=== PATIENT | female | born 1960 | race Caucasian/White ===

== ENCOUNTER 2024-12-08 07:10 | Day surgery (SDC) | payer MEDICARE, BC ==
[2024-12-08] MEDS ORDERED: DEXAMETHASONE SOD PHOSPHATE 4 MG/ML 1 ML VIAL IV ONE (07:29)
[2024-12-08] MEDS ORDERED: HYDROmorphone 0.5 MG/0.5 ML SYRINGE IVP PRN ×2 (07:29→10:45)
[2024-12-08 08:07] LABS: Glucose,Whole Blood 79 mg/dL (70-110)
[2024-12-08] MEDS: IV FLUID CONTINUATION 1,000 ML IV ONE (08:09)
[2024-12-08] MEDS: ONDANSETRON 4 MG/2 ML VIAL IVP ONE (08:15)
[2024-12-08] MEDS: LACTATED RINGERS 1,000 ML IV SCH (08:15)
[2024-12-08] MEDS: DEXTROSE 50% SYRINGE 50 ML IVP STA (08:16)
[2024-12-08 08:17] LABS: Basophils # (A) 0.1 k/uL (0-0.2); Basophils % (A) 1 %; Eosinophils # (A) 0.2 k/uL (0-0.7); Eosinophils % (A) 2 %; HCT 41.9 % (34.0-46.0); HGB 13.8 gm/dL (11.4-16.0); Lymphocytes # (A) 2.2 k/uL (1.0-4.8); Lymphocytes % (A) 26 %; MCHC 32.9 g/dL (31.0-37.0); MCV 91.2 fL (80.0-100.0); Mean Platelet Volume 6.9; Monocytes # (A) 0.6 k/uL (0-1.0); Monocytes % (A) 7 %; Neutrophils # (A) 5.4 k/uL (1.3-7.7); Neutrophils % (A) 63 %; Platelet Count 240 k/uL (150-450); RBC 4.59 m/uL (3.80-5.40); RDW 13.3 % (11.5-15.5); WBC 8.6 k/uL (3.8-10.6)
[2024-12-08 08:29] LABS: Glucose,Whole Blood 170 mg/dL (70-110)
[2024-12-08] MEDS ORDERED: SUCCINYLCHOLINE CHLORIDE 200 MG/10 ML VIAL IV ONE (08:29)
[2024-12-08] MEDS ORDERED: NEOSTIGMINE 1 MG/ML 10 ML VIAL ONE (08:29)
[2024-12-08] MEDS ORDERED: ROCURONIUM 10 MG/ML (5 ML VIAL) IV ONE (08:29)
[2024-12-08] MEDS ORDERED: KETAMINE HCL IN 0.9 % NACL 50 MG/5 ML SYRINGE ONE (08:29)
[2024-12-08] MEDS ORDERED: GLYCOPYRROLATE 0.2 MG/ML 2 ML VIAL ONE (08:29)
[2024-12-08] MEDS ORDERED: MIDAZOLAM 2 MG/2 ML VIAL ONE (08:29)
[2024-12-08] MEDS ORDERED: fentaNYL (PF) 50 MCG/ML 2 ML AMP ONE (08:29)
[2024-12-08] MEDS ORDERED: PROPOFOL 10 MG/ML 20 ML VIAL IV ONE (08:29)
[2024-12-08] MEDS ORDERED: PHENYLEPHRINE 10 MG/ML VIAL ONE (08:29)
[2024-12-08] MEDS: ceFAZolin 1,000 MG in SODIUM CHLORIDE 0.9% IRRIGATIO 1,000 ML IRRIGATION PRN (08:51)
[2024-12-08] MEDS: LIDOCAINE 1%-EPI 1:100,000 20 ML VIAL SQ ONE (08:58)
[2024-12-08] MEDS: THROMBIN (BOVINE) 5,000 UNIT VIAL TOPICAL ONE (08:59)
--- NOTE | 2024-12-08 09:43 | XR ---
EXAMINATION TYPE: XR cervical spine 1V DATE OF EXAM: 12/08/2024 9:31 AM INDICATION: Patient age:Female; 64 years old; Reason for study: NEEDLE PLACEMENT; [facility], COMPARISON: None TECHNIQUE: The cervical spine was imaged in single lateral projection. FINDINGS: No evidence for cervical spine fracture within the limitations of a single lateral view. Postsurgical changes from anterior fusion with fixation plate spanning C6. There is a screw involving the anterio r aspect of the C5 vertebral body. No visualized screw involving the C6 vertebral body. There is fusi on of the C5-C6 vertebral bodies. Anterior approach needle position is identified with distal tip wit hin the anterior midportion of the C6-C7 disc space. Prevertebral soft tissue swelling demonstrated. Endotracheal tube partially visualized. Temperature probe identified within the region of the nasopha rynx. IMPRESSION: Anterior approach needle position is identified with distal tip within the anterior midportion of the C6-C7 disc space. [facility], , 12/08/2024 9:40 AM
[2024-12-08] MEDS: LACTATED RINGERS 1,000 ML IV ONE (09:55)
--- NOTE | 2024-12-08 10:13 | XR ---
EXAMINATION TYPE: XR cervical spine 1V DATE OF EXAM: 12/08/2024 10:07 AM INDICATION: Patient age:Female; 64 years old; Reason for study: HARDWARE PLACEMENT; [facility], COMPARISON: Cervical spine radiograph 12/08/2024 TECHNIQUE: The cervical spine was imaged in single lateral projection. FINDINGS: No evidence for cervical spine fracture within the limitations of a single lateral view. Postsurgical changes of anterior cervical fusion with fixation plate spanning C5-C6 with screws at the C5 and C6 levels with disc spacer. Hardware appears intact with appropriate alignment. The C7 vertebral body is not well-visualized. Expected prevertebral soft tissue swelling. Mild multilevel degenerative disc d isease. Endotracheal tube partially visualized. Temperature probe identified within the region of the nasopharynx. IMPRESSION: Postsurgical changes from ACDF C5-C6. Hardware appears intact with appropriate alignment. [facility], , 12/08/2024 10:10 AM
[2024-12-08 10:25] VITALS: TEMP 97
--- NOTE | 2024-12-08 10:30 | P.OP ---
Date of Procedure: 12/08/24 Preoperative Diagnosis: Cervical stenosis C6-7, hernia nucleus pulposus C6-7, upper extremity radiculopathy, history of prior anterior cervical decompression and fusion C5-6 with retained hardware Postoperative Diagnosis: Same Anesthesia: GETA Pathology: none sent Condition: stable Disposition: PACU Description of Procedure: BRIEF OPERATIVE NOTE Preoperative Diagnosis:Cervical stenosis C6-7, hernia nucleus pulposus C6-7, upper extremity radiculopathy, history of prior anterior cervical decompression and fusion C5-6 with retained hardware Postoperative Diagnosis: Same with findings of solid fusion at C5-6 Procedure: Removal anterior cervical plate at C5-6, Exploration of fusion C5-6 with findings of solid fusion, anterior cervical decompression with discectomy and fusion C6-7 Placement of interbody graft Application of anterior cervical plate C6-7 Surgeon: Dr. Salmon Site Reliability Engineer: Moises MARTE who is present throughout the entire the case persistence during positioning, dissection, exposure, visualization, and all crucial elements of the case as well as closure. Anesthesia: General anesthesia Estimated blood loss: Approximately 30 cc Complications: None apparent Components implanted: We removed a [place] [employer] anterior cervical plate with screws and inserted a K2M [employer] [place] anterior cervical plate with screws with Vikos interbody allograft bone graft Disposition: To recovery room in good stable condition. OPERATIVE INDICATIONS The patient has had worsening issues in their neck and upper extremities over the past year. In the past the patient had undergone anterior cervical decompression with fusion at C5-6 for upper extremity colopathy and stenosis with neck pain and had an excellent result over the past 13 years. However over the past year the patient's been having increasing symptoms in her neck and upper extremities with numbness tingling and radiculopathy. She was found to have adjacent level degeneration with disc herniation and stenosis at C6-7 and evidence of solid fusion at C5-6. The patient has been through conservative treatment. She is not having any prolonged benefit despite aggressive conservative treatment and was interested in surgical intervention. We discussed various treatment options including surgery, and the patient wishes to proceed with surgery We discussed the risk, patient's alternatives and benefits of surgery including but not limited to, risk of bleeding risk of infection, risk of need for further surgery, risk of decreased, loss of motion, muscle function, malunion nonunion, hardware failure, nerve damage, paralysis, heart attack, and . OPERATIVE SUMMARY After discussing all the risks, patient alternatives and benefits at length, the patient elected to proceed with surgical intervention, signed informed consent, and presented for their procedure. The patient was seen and examined in the preoperative holding area and the surgical site was marked. The patient was given antibiotics and brought to the operating room. The patient was positioned on the operating room table in a supine position being careful to pad any bony prominences and pressure points. The patient was sedated and intubated by anesthesia in standard fashion. Once the airway and C- spine were stabilized the patient's arms were padded and tucked at her side, with her shoulders gently taped. The head was placed in a donut pad with the neck in good neutral alignment and position. We were careful to maintain the patient's cervical spine and good neutral alignment and position throughout. The patient was prepped and draped in a normal standard fashion. An appropriate timeout and keystone protocol performed. We were able to proceed with the surgery. The local wound area was infiltrated with local anesthetic. An incision was made transversely approximately 2-1/2 cm over the appropriate levels utilizing the prior incision at C6. Dissection was taken down subcutaneously to the level of the platysma which was split in line with its fibers. Dissection was taken with a carotid approach, with the trachea and esophagus medial and the carotid sheath laterally. We dissected down to the anterior surface of the vertebral bodies. I was able to expose the prior plate at C5-6 appropriately and identified C6-7. Intraoperative x-ray was taken which showed a marker at the appropriate level. I was able to remove the screws and the plate at C5-6 and total. I explored the fusion which appear to be solid from C5-6 with no evidence of motion and good bony formation across the vertebral bodies. I evaluated further there was large osteophytes at C6-7, with the appropriate level positively confirmed, we were able to proceed with discectomy at the appropriate levels of C6-7. All of the operative levels were exposed appropriately. The patient had all their twitches back, and there was no evidence of recurrent laryngeal issue. The wound was copiously irrigated and suctioned dry as had been done periodically throughout the case. At the appropriate level/levels of C6-7, I established an annulotomy with an 11 blade scalpel. I remove the osteophytes with a rongeur. A discectomy was performed with a combination of pituitary rongeurs, curettes, a high-speed bur, and Kerrison rongeurs. The posterior longitudinal ligament was taken down as were any posterior osteophytes. This gave good central and bilateral foraminal decompression. There is no evidence of any dural tear or leak. The endplates were prepared with a high-speed bur. With the endplates in good parallel position, I was able to size for the appropriate size interbody graft. The wound was irrigated and suctioned dry the graft was prepared and malleted into position. It had good alignment and position with the anterior surface flush with the anterior surface of the vertebral bodies. With the grafts intact, I was able to measure and contour and appropriate sized plate. The plate was positioned at the midline over the appropriate levels at C6-7. Screw holes were established with a hand drill and drill guide. Screws were placed in good alignment and position with excellent bony purchase. They were seated under the locking device. The construct was checked and found to be stable. Intraoperative x-ray was taken which showed good alignment and position of the implants at the appropriate levels. There was no evidence of any dural tear or leak. Good hemostasis was maintained. The wound was copiously irrigated and suctioned dry as had been done periodically throughout the case. The platysma was closed with absorbable suture. The subcutaneous tissue was closed. The subcuticular tissue was closed with absorbable suture. The wound was cleaned and dried and dressed appropriately. A soft cervical collar was placed appropriately. The patient was woken up by anesthesia, extubated, transferred back gently to their hospital bed and brought to the recovery room in good stable condition. The patient will be admitted to the hospital for appropriate postoperative care, medical management and monitoring. We will continue to follow them closely about the postoperative course.
[2024-12-08 10:39] LABS: Glucose,Whole Blood 86 mg/dL (70-110)
[2024-12-08] MEDS ORDERED: BENZOCAINE/MENTHOL LOZENG 1 EACH LOZENGE MUCOUS MEM PRN (10:45)
[2024-12-08] MEDS ORDERED: ONDANSETRON 4 MG/2 ML VIAL IVP PRN (10:45)
[2024-12-08] MEDS ORDERED: SODIUM CHLORIDE 0.9% 1,000 ML IV SCH (10:45)
[2024-12-08] MEDS ORDERED: CYCLOBENZAPRINE 10 MG TAB PO PRN (10:45)
[2024-12-08] MEDS ORDERED: HYDROcodone/APAP 7.5-325MG 1 EACH TAB PO PRN (10:46)
[2024-12-08] MEDS: HYDROcodone/APAP 7.5-325MG 1 EACH TAB PO PRN (11:29)
[2024-12-08] MEDS ORDERED: ACETAMINOPHEN TAB 325 MG TAB PO SCH (12:00)
[2024-12-08 12:26] VITALS: BP 149/68; PULSE 81; RESP 16
[2024-12-08] MEDS ORDERED: PANTOPRAZOLE 40 MG TABLET PO SCH (17:30)
[2024-12-08] MEDS ORDERED: NON FORMULARY DRUG (Baclofen [Lioresal] 20 MG Tablet) PO SCH (21:00)
[2024-12-08] MEDS ORDERED: [UNRECOGNIZED DRUG - OTHER] BOTH EYES SCH (21:00)
[2024-12-08] MEDS ORDERED: MONTELUKAST 10 MG TAB PO SCH (21:00)
[2024-12-08] MEDS ORDERED: IPRATROPIUM BROMIDE 0.06% NASAL SPRAY (15 ML) INTRANASAL SCH (21:00)
[2024-12-08] MEDS ORDERED: ATORVASTATIN 40 MG TAB PO SCH (21:00)
[2024-12-08] MEDS ORDERED: AZELASTINE 137MCG/SPRAY EA NOSTRIL SCH (21:00)
[2024-12-08] MEDS ORDERED: FLUTICASONE NASAL 50MCG/SPRAY 16GM BTL INTRANASAL SCH (21:00)
[2024-12-08] MEDS ORDERED: ESTRADIOL 1 MG PO SCH (21:00)
[2024-12-09] MEDS ORDERED: LEVOTHYROXINE 100 MCG TAB PO SCH (06:30)
[2024-12-09] MEDS ORDERED: LOSARTAN 50 MG TAB PO SCH (09:00)
[2024-12-09] MEDS ORDERED: buPROPion XL 150 MG TAB.ER.24H PO SCH (09:00)
[2024-12-09] MEDS ORDERED: FUROSEMIDE 20 MG TAB PO SCH (09:00)
[2024-12-09] MEDS ORDERED: LORATADINE 10 MG TAB PO SCH (09:00)
[2024-12-09] MEDS ORDERED: MULTIVITAMINS, THERA 1 EACH TAB PO SCH (09:00)
[2024-12-09] MEDS ORDERED: POTASSIUM CHLORIDE ER 20 MEQ TAB.ER PO SCH (09:00)
[2024-12-09] MEDS ORDERED: SENNOSIDES-DOCUSATE SODIUM 1 EACH TAB PO SCH (09:00)
[2024-12-12] MEDS ORDERED: NON FORMULARY DRUG (Semaglutide [Ozempic] 1 MG/0.75 ML Each) SQ SCH (09:00)
[2024-12-12] MEDS ORDERED: NON FORMULARY DRUG (Alendronate Sodium [Fosamax] 70 MG Tablet) PO SCH (09:00)
== END 2024-12-08 12:36 | disposition home or self-care (01) ==
LOC: OR 07:10
PROVIDERS: ATTEND Orthopaedic Surgery Orthopaedic Surgery of the Spine
DX: M48.02 Spinal stenosis, cervical region (principal); M50.122 Cervical disc disorder at C5-C6 level with radiculopathy; Z98.1 Arthrodesis status
CPT/HCPCS: 22551; 85025; 72020; C1713; C1762; J2250; J0330; J2710; J0690 ×2; J2405; J3010; J2704; J2371; J1596